=== PATIENT | female | born 1985 | race Caucasian/White ===

== ENCOUNTER 2023-08-01 20:28 | Emergency (ER) | payer BC ==
[~2023-08-01] VITALS: Ht 149.9 cm; Wt 83.9 kg
[2023-08-01 20:53] VITALS: BP 138/64; PULSE 84; RESP 16; TEMP 98; O2SAT 100
[2023-08-01 21:57] LABS: APPEARANCE,URINE CLEAR (CLEAR); BILIRUBIN,URINE NEGATIVE (NEGATIVE); BLOOD, URINE NEGATIVE (NEGATIVE); COLOR,URINE YELLOW (YELLOW); LEUKOCYTE ESTERASE ,URINE NEGATIVE (NEGATIVE); NITRITE, URINE NEGATIVE (NEGATIVE); PROTEIN,URINE NEGATIVE (NEGATIVE); UGLUCOSE NEGATIVE (NEGATIVE); UROBILINOGEN,URINE 0.2 EU/dL (0.2 - 1)
== END 2023-08-02 00:36 | disposition left against medical advice (07) ==
LOC: MED 20:28
DX: R10.32 Left lower quadrant pain (principal); Z53.21 Procedure and treatment not carried out due to patient leaving prior to being seen by health care provider
CPT/HCPCS: 81003; 81025; 99281